=== PATIENT | female | born 1960 | race Caucasian/White ===

== ENCOUNTER 2017-02-25 08:16 | Emergency (ER) | payer OTHER ==
[2017-02-25 08:44] LABS: SPECIFIC GRAVITY 1.015 (1.001-1.030); URINE BILIRUBIN NEGATIVE (NEGATIVE); URINE BLOOD NEGATIVE (NEGATIVE); URINE GLUCOSE (UA) NEGATIVE (NEGATIVE); URINE LEUKOCYTE ESTERASE NEGATIVE (NEGATIVE); URINE NITRITE NEGATIVE (NEGATIVE); URINE PROTEIN NEGATIVE (NEGATIVE); URINE UROBILINOGEN NORMAL (0-1 mg/dl)
[2017-02-25 08:45] LABS: URINE APPEARANCE CLEAR; URINE COLOR STRAW
[2017-02-25] MEDS ORDERED: ONDANSETRON 4 MG/2ML 2 ML VIAL ONE (09:19)
[2017-02-25] MEDS ORDERED: SODIUM CHLORIDE 0.9% 1,000 ML ONE (09:19)
[2017-02-25] MEDS ORDERED: KETOROLAC TROMETHAMINE 30 MG/ML 1 ML VIAL ONE (09:19)
[2017-02-25 09:36] LABS: ABSOLUTE NEUTROPHIL COUNT 3.2 K/mm3 (1.8-7.7); BASO % 0.2 % (0.2-1.0); EOS # 0.1 (0.0-0.5); EOS % 2.5 % (0.9-2.9); HEMATOCRIT 38.4 % (37.0-47.0); HEMOGLOBIN 12.6 gm/l (12.0-16.0); IMM NEUT% 0.4 % (0-1); LYMPH # 1.6 (1.0-4.8); LYMPH % 30.8 % (15-45); MEAN CELL VOLUME 90.6 fl (81.0-99.0); MEAN CORPUSCULAR HEMOGLOBIN 29.7 pg (27.0-31.0); MEAN CORPUSCULAR HGB CONC 32.8 g/dl (33.0-37.0); MEAN PLATELET VOLUME 8.7 fl (7.4-10.4); MONO # 0.3 (0.0-0.8); MONO % 4.8 % (4-12); NEUT % 61.3 % (43-75); PLATELET COUNT 225 K/mm3 (130-400); RED CELL DISTRIBUTION WIDTH 11.9 % (11.5-14.5)
[2017-02-25 09:45] LABS: ALB/GLOB RATIO 1.1 (>1.0); ALBUMIN 3.9 gm/dL (3.5-5.7); CALCIUM 9.9 mg/dL (8.6-10.3)
[2017-02-25 09:51] LABS: TROPONIN I < 0.01 ng/ml (0.0-0.06)
[2017-02-25 09:55] LABS: CKMB ISOENZYME 1.8 ng/ml (0.6-6.3)
[2017-02-25] MEDS: IOPAMIDOL 370 (76%) 100 ML VIAL IV ONE (10:00)
--- NOTE | 2017-02-25 11:13 | CT ---
Exam Type: ABD/PELVIS W/ CON Date and Time: 02/25/2017 9:07 AM Clinical information: Left lower quadrant and lumbar pain Comparison: None Technique: Contiguous axial 4 mm images were obtained from the lung bases through the pelvis after the uneventful IV administration of 100 cc of [id number]. Sagittal and coronal reformations with high resolution lung algorithm images were also obtained at this time. CT DI: 9.7 DLP 543.1 FINDINGS: Lung base : Dependent and atelectatic changes. Calcified granuloma on image 10 within the anterior right middle lobe measuring 4 mm. Visualized heart:There is no pericardial effusion. LIVER: within normal limits. BILE DUCTS: normal caliber. GALLBLADDER: No calcified gallstones. Normal caliber wall. PANCREAS: within normal limits. SPLEEN: within normal limits. ADRENALS: within normal limits. KIDNEYS: within normal limits. Contrast excretion is noted within the kidneys. Stomach and small BOWEL: Normal caliber. Large bowel: Air and stool are noted within the large bowel. Appendix is normal. LYMPH NODES: No enlarged mesenteric lymph nodes. PERITONEUM: no ascites or free air, no fluid collection. Haziness to the left lower quadrant mesentery is present with scattered prominent though nonenlarged nodes. Findings are compatible with the sidney mesentery appearance. VESSELS: within normal limits RETROPERITONEUM: within normal limits. ABDOMINAL WALL: within normal limits. Bladder: Normal. Uterus and adnexa: Normal. BONES: within normal limits. IMPRESSION: Sidney mesentery appearance is present within the left mid abdomen extending to the lower quadrant. This could also be seen in patients with cirrhosis, neoplasm or trauma. This can also have an idiopathic etiology. Correlation with patient's clinical status and laboratory values would be recommended. Otherwise no acute inflammatory process is noted as a cause of the patient's stated pain. Close clinical and radiographic follow-up are recommended. Incidental findings as above. Findings were called to Dr. Pisano at approximately 1056 hours on 02/25/2017.
== END 2017-02-25 11:41 | disposition home or self-care (01) ==
LOC: ED 08:16
DX: K65.4 Sclerosing mesenteritis (principal); R55 Syncope and collapse; M54.5 Low back pain
CPT/HCPCS: 83690; 82150; 85025; 82550; 82553; 80053; 81003; 84484; 74177; 96375; 99284 ×2; 96374; 96361 ×2; 93005; J1885; J2405; J7030; Q9967

== ENCOUNTER 2017-03-04 14:09 | Emergency (ER) | payer OTHER ==
[2017-03-04 16:02] LABS: SPECIFIC GRAVITY 1.015 (1.001-1.030); URINE APPEARANCE CLEAR; URINE BILIRUBIN NEGATIVE (NEGATIVE); URINE BLOOD NEGATIVE (NEGATIVE); URINE COLOR YELLOW; URINE GLUCOSE (UA) NEGATIVE (NEGATIVE); URINE LEUKOCYTE ESTERASE NEGATIVE (NEGATIVE); URINE NITRITE NEGATIVE (NEGATIVE); URINE PROTEIN NEGATIVE (NEGATIVE); URINE UROBILINOGEN NORMAL (0-1 mg/dl)
== END 2017-03-04 16:42 | disposition home or self-care (01) ==
LOC: ED 14:09
DX: M54.5 Low back pain (principal)